=== PATIENT | male | born 1975 | race Two or more races ===

== ENCOUNTER 2023-12-18 00:12 | Emergency (ER) | payer MEDICAID, OTHER ==
[~2023-12-18] VITALS: Ht 172.7 cm; Wt 65.0 kg
[2023-12-18 03:00] VITALS: BP 127/88; TEMP 97.4
[2023-12-18 03:17] VITALS: PULSE 87; RESP 16; O2SAT 98
== END 2023-12-18 03:34 | disposition home or self-care (01) ==
LOC: ER 00:12 → EDBD 00:12 → ER 03:34
DX: S00.83XA Contusion of other part of head, initial encounter (principal); Y04.2XXA Assault by strike against or bumped into by another person, initial encounter; Y93.89 Activity, other specified; Y92.89 Other specified places as the place of occurrence of the external cause; Y99.8 Other external cause status
CPT/HCPCS: 70486